=== PATIENT | male | born 1985 ===

== ENCOUNTER 2018-08-13 14:08 | Emergency (ER) | payer OTHER ==
[2018-08-13 14:08] VITALS: BMI 53.2
[2018-08-13] MEDS ORDERED: TDAP Vaccine 0.5 mL Syr IM ONE (14:24)
--- NOTE | 2018-08-13 14:28 | ED PDOC ---
Arrival/HPI - General Chief Complaint: Trauma Time Seen by Provider: 08/13/18 14:24 Historian: Patient - History of Present Illness Narrative History of Present Illness (Text): 08/13/18 14:29 33 year old male, an employee of [employer], with no significant past medical history, presents to the Emergency department for medical evaluation s/p mechanical fall today. 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 Patient denies hitting his head or loss of consciousness. Patient informs appropriate ambulation following the incident. Patient denies any somatic complaints. Patient denies any fevers, chills, headache, dizziness, chest pain, shortness of breath, dyspnea on exertion, cough, abdominal pain, nausea, vomiting, diarrhea, back pain, neck pain, or any other complaints. Time/Duration: Prior to Arrival Symptom Onset: Gradual Symptom Course: Improving Activities at Onset: Light Context: Other ([employer] [facility] [place] employee) Past Medical History - Provider Review Nursing Documentation Reviewed: Yes - Tetanus Immunization Tetanus Immunization: Unknown - Cardiac Hx Cardiac Disorders: No - Pulmonary Hx Respiratory Disorders: No - Neurological Hx Neurological Disorder: No - HEENT Hx HEENT Disorder: No - Renal Hx Renal Disorder: No - Endocrine/Metabolic Hx Endocrine Disorders: No - Hematological/Oncological Hx Blood Disorders: No - Integumentary Hx Dermatological Disorder: No - Musculoskeletal/Rheumatological Hx Musculoskeletal Disorders: No - Gastrointestinal Hx Gastrointestinal Disorders: No - Genitourinary/Gynecological Hx Genitourinary Disorders: No - Psychiatric Hx Psychophysiologic Disorder: No Hx Substance Use: No - Surgical History Other/Comment: lipoma left leg - Anesthesia Hx Anesthesia: Yes Hx Anesthesia Reactions: No Hx Malignant Hyperthermia: No Family/Social History - Physician Review Nursing Documentation Reviewed: Yes Family/Social History: Unknown Family HX Smoking Status: Never Smoked Hx Alcohol Use: No Hx Substance Use: No Allergies/Home Meds Allergies/Adverse Reactions: Allergies No Known Allergies Allergy (Verified 05/31/14 03:03) Home Medications: Home Meds Medication Instructions Recorded Confirmed No Known Home Med 06/02/14 06/02/14 Review of Systems - Physician Review All systems were reviewed & negative as marked: Yes - Review of Systems Constitutional: absent: Fevers Respiratory: absent: SOB, Cough Cardiovascular: absent: Chest Pain, MORRIS Gastrointestinal: absent: Abdominal Pain, Diarrhea, Nausea, Vomiting Musculoskeletal: absent: Back Pain, Neck Pain Neurological: absent: Headache, Dizziness Physical Exam - Physical Exam Narrative Physical Exam (Text): 08/13/18 14:32 Gen: VS reviewed, alert, well developed, well nourished, nontoxic, mild distress. ENT: normal pharynx. Eye: EOMI, PERRL. Neck: no JVD, supple, no adenopathy. CV: regular rate, regular rhythm, no rubs, no murmur, no gallops, S1, S2, pulses equal and strong. Pulm: no distress, clear to auscultation, no wheeze, no rhonchi, breath sounds equal, no rales. Abd: soft, nontender, no guarding, no rebound, no rigidity, normal bowel sounds. Ext: no edema. Superficial abrasion to anterior aspect of right knee. No bony tenderness. No deformity. Full ROM. Skin: good color, no rash, no cyanosis. Psych: responds appropriately to questions, normal affect. Neuro: oriented x 3, CN2-12 intact grossly, motor intact, sensation intact. Respiratory Rate: Normal Appearance: Positive for: Well-Appearing, Non-Toxic, Comfortable Pain Distress: None Mental Status: Positive for: Alert and Oriented X 3 Medical Decision Making ED Course and Treatment: 08/13/18 14:25 Impression: 33 year old male presents to the Emergency department for medical evaluation. Plan: -- TDAP -- Reassess and disposition Prior Visits: Notes and results from previous visits were reviewed. Progress Notes: 08/13/18 14:25 accidental fall with direct impact onto right knee, no significant clinical concern for fracture or ligamentous injury, with the minor skin abrasion will update tetanus. it was agreed with the patient to forego imaging at this time as it is not clinically necessary. refer to work health for prn follow treatment. - Scribe Statement The provider has reviewed the documentation as recorded by the Meriibcapo Hunter. All medical record entries made by the Scribe were at my direction and personally dictated by me. I have reviewed the chart and agree that the record accurately reflects my personal performance of the history, physical exam, medical decision making, and the department course for this patient. I have also personally directed, reviewed, and agree with the discharge instructions and disposition. Disposition/Present on Arrival - Present on Arrival Any Indicators Present on Arrival: No History of DVT/PE: No History of Uncontrolled Diabetes: No Urinary Catheter: No History of Decub. Ulcer: No History Surgical Site Infection Following: None - Disposition Have Diagnosis and Disposition been Completed?: Yes Diagnosis: Knee contusion, Accidental fall Disposition: HOME/ ROUTINE Disposition Time: 14:26 Patient Plan: Discharge Condition: STABLE Discharge Instructions (ExitCare): Contusion (DC) Additional Instructions: Follow up with work health as needed for follow up care. If pain in the knee worsens it is recommended you follow up with an orthopedic surgeon. DEIDRE REESE, thank you for letting us take care of you today. Your provider was Dr. Liu Tan and you were treated for right knee contusion. The emergency medical care you received today was directed at your acute symptoms. If you were prescribed any medication, please fill it and take as directed. It may take several days for your symptoms to resolve. Return to the Emergency Department if your symptoms worsen, do not improve, or if you have any other problems. Please contact your doctor or call one of the physicians/clinics you have been referred to that are listed on the Patient Visit Information form that is included in your discharge packet. Bring any paperwork you were given at dis charge with you along with any medications you are taking to your follow up visit. Our treatment cannot replace ongoing medical care by a primary care provider outside of the emergency department. Thank you for allowing the [facility] team to be part of your care today. If you had an X-Ray or CT scan: A Radiologist will review the ED reading if any change in treatment is needed we will contact you. If you had a blood, urine, or wound culture: It will take several days for the results, if any change in treatment is needed we will contact you. If you had an STI test: It will take 48 hours for the results. Please call after 1 week if you have not heard back. Referrals: [facility] [Outside] - Follow up with primary Georgi Mahan DO [Staff Provider] - Follow up with primary Forms: [facility] (Turkmen)
[2018-08-13 14:37] VITALS: RESP 18; TEMP 98.9
[2018-08-13 14:58] VITALS: BP 135/78; PULSE 87; O2SAT 98
== END 2018-08-13 15:05 | disposition home or self-care (01) ==
LOC: ED 14:08
DX: S80.01XA Contusion of right knee, initial encounter (principal); W01.0XXA Fall on same level from slipping, tripping and stumbling without subsequent striking against object, initial encounter; Y93.F9 Activity, other caregiving; Y92.89 Other specified places as the place of occurrence of the external cause; Y99.0 Civilian activity done for income or pay; Z23 Encounter for immunization